=== PATIENT | male | born 1960 | race Caucasian/White ===

== ENCOUNTER 2021-01-22 13:03 | Observation (INO) | payer SELFPAY ==
[~2021-01-22] VITALS: Ht 170.2 cm; Wt 99.8 kg
[2021-01-22 13:28] LABS: BASOPHILS # (AUTO) 0.1 (0.0-0.1); BASOPHILS % 0.5 % (0.0-1.0); EOSINOPHILS # (AUTO) 0.3 (0.0-0.4); EOSINOPHILS % 2.1 % (0.0-6.0); HEMATOCRIT 46.6 % (38.2-49.6); HEMOGLOBIN 14.9 g/dL (14.0-18.0); LYMPHOCYTES # (AUTO) 1.5 (1.0-3.2); MEAN CORPUSCULAR HEMOGLOBIN 33.2 pg (28-32); MEAN CORPUSCULAR VOLUME 103.8 fL (81-99); MONOCYTES # (AUTO) 0.7 (0.2-0.8); MONOCYTES % 5.8 % (4.4-11.3); NEUTROPHILS # (AUTO) 9.6 (2.1-6.9); PLATELET COUNT 175 x10e3/uL (140-360); RED BLOOD COUNT 4.49 x10e6/uL (4.3-5.7); RED CELL DISTRIBUTION WIDTH 13.2 % (11.7-14.4)
[2021-01-22 13:33] LABS: INR 1.26; PROTHROMBIN TIME 16.8 seconds (11.9-14.5)
[2021-01-22 13:41] LABS: ALBUMIN 3.3 g/dL (3.5-5.0); ALBUMIN/GLOBULIN RATIO 0.9 (0.8-2.0); ANION GAP 13.7 mmol/L (8-16); CREATININE, SERUM 1.07 mg/dL (0.72-1.25); POTASSIUM 3.7 mmol/L (3.5-5.1)
[2021-01-22] MEDS ORDERED: ALBUMIN 25% 12.5GM 50ML 0 ML IV ONE (15:34)
[2021-01-22 17:30] VITALS: BP 117/89
[2021-01-22 18:18] VITALS: BP 117/89
[2021-01-22 20:18] VITALS: BP 126/77
[2021-01-22 21:00] VITALS: BP 126/77
[2021-01-22] MEDS ORDERED: ZOFRAN4 MG PO (21:44)
[2021-01-22] MEDS ORDERED: LASIX40 MG PO (21:44)
[2021-01-22] MEDS ORDERED: NAPROSYN500 MG PO (21:44)
[2021-01-22] MEDS ORDERED: COREG25 MG PO (21:44)
[2021-01-22] MEDS ORDERED: ASPIRIN81 MG PO (21:44)
[2021-01-22] MEDS ORDERED: PLAVIX75 MG PO (21:44)
[2021-01-22] MEDS ORDERED: ALDACTONE50 MG PO (21:44)
[2021-01-22] MEDS ORDERED: MAGNESIUM HYDROXIDE 30 ML UDC PO ONE ×2 (22:30→23:30)
[2021-01-22] MEDS ORDERED: ONDANSETRON HCL 4 MG ORAL DISINTEGRATING TAB PO PRN (22:30)
[2021-01-22] MEDS ORDERED: TRAMADOL HCL 50 MG TAB PO PRN (22:30)
[2021-01-22] MEDS: FUROSEMIDE 40 MG TAB PO SCH (22:45)
[2021-01-22] MEDS ORDERED: CEFTRIAXONE 1 GM VIAL IM STA (23:56)
[2021-01-23 00:06] LABS: BODY FLUID APPEARANCE SL.CLOUDY; BODY FLUID COLOR YELLOW; BODY FLUID TYPE PERITONEAL; LYMPHOCYTES,BODY FLUID 66 %; MONO/MACROPHG,BODY FLUID 4 %; NEUTROPHILS,BODY FLUID 30 %; RBC,BODY FLUID 0 cells/uL; WBC,BODY FLUID 343 cells/uL
[2021-01-23 00:29] VITALS: BP 135/86
[2021-01-23] MEDS ORDERED: SODIUM CHLORIDE 0.9% 50ML 50 ML ONE (00:37)
[2021-01-23] MEDS ORDERED: LACTATED RINGER'S 1,000 ML INJ SCH (01:15)
[2021-01-23] MEDS ORDERED: LACTATED RINGER'S 1,000 ML ONE (01:28)
[2021-01-23 05:42] VITALS: BP 127/89
[2021-01-23 08:00] VITALS: BP 129/90
[2021-01-23 08:01] VITALS: BP 129/90
[2021-01-23] MEDS: FUROSEMIDE 40 MG TAB PO SCH (08:40)
[2021-01-23] MEDS ORDERED: SPIRONOLACTONE 25 MG TAB PO SCH (09:00)
[2021-01-23] MEDS ORDERED: CARVEDILOL 12.5 MG TAB PO SCH (09:00)
[2021-01-23] MEDS ORDERED: ASPIRIN 81 MG CHEW TAB PO SCH (09:00)
[2021-01-23] MEDS ORDERED: CLOPIDOGREL BISULFATE 75 MG TAB PO SCH (09:00)
[2021-01-23] MEDS ORDERED: CEFTRIAXONE 1 GM in SODIUM CHLORIDE 0.9% 50ML 50 ML IV SCH (09:00)
[2021-01-23 09:35] LABS: CLARITY,URINE CLEAR (CLEAR); COLOR,URINE YELLOW (YELLOW); KETONES,URINE NEGATIVE (NEGATIVE); LEUKOCYTE ESTERASE ,URINE NEGATIVE (NEGATIVE); NITRITE,URINE NEGATIVE (NEGATIVE); PROTEIN,URINE DIPSTICK NEGATIVE (NEGATIVE); URINE UROBILINOGEN 0.2 mg/dL (0.2 - 1)
[2021-01-23 09:36] LABS: BACTERIA,URINE FEW /HPF; EPITHELIAL CELLS,URINE FEW /LPF; RBC,URINE 0-5 /HPF (0-5); WBC,URINE (MAN) 0-5 /HPF (0-5)
[2021-01-23 12:00] VITALS: BP 114/80
== END 2021-01-23 11:40 | disposition home or self-care (01) ==
LOC: ER 13:09 → ERHOLD 14:46 → MED/SURG3 17:19
PROVIDERS: ADMIT Internal Medicine; ATTEND Internal Medicine
DX: K70.31 Alcoholic cirrhosis of liver with ascites (principal); Z20.822 Contact with and (suspected) exposure to COVID-19; K59.00 Constipation, unspecified; B19.20 Unspecified viral hepatitis C without hepatic coma; I10 Essential (primary) hypertension; R16.0 Hepatomegaly, not elsewhere classified; F10.21 Alcohol dependence, in remission
CPT/HCPCS: 36415; 49083; 71045; 74176; 74470; 80053; 81001; 82040; 83605; 83880; 84157; 84484; 85025; 85610; 87040; 87070; 87205; 87521; 88112; 88305; 88342; 89051; 93005; 94799; 99284; C1729; C9113; G0378 ×2; J0696; J7121; U0002

== ENCOUNTER 2021-09-26 14:01 | Emergency (ER) | payer OTHER ==
[~2021-09-26] VITALS: Ht 170.2 cm; Wt 99.8 kg
[~2021-09-26 14:01] MED LIST: ALDACTONE50 MG PO; ASPIRIN81 MG PO; COREG25 MG PO; LASIX40 MG PO; NAPROSYN500 MG PO; PLAVIX75 MG PO; ZOFRAN4 MG PO
== END 2021-09-26 15:36 | disposition home or self-care (01) ==
LOC: ER 14:14
DX: K70.31 Alcoholic cirrhosis of liver with ascites (principal); I10 Essential (primary) hypertension; Z95.1 Presence of aortocoronary bypass graft
CPT/HCPCS: 99282

== ENCOUNTER 2021-11-16 10:29 | Inpatient (IN) | payer OTHER ==
[~2021-11-16] VITALS: Ht 170.2 cm; Wt 95.7 kg
[2021-11-16] MEDS ORDERED: SODIUM CHLORIDE 0.9% 1000ML 1,000 ML IV STA (10:59)
[2021-11-16] MEDS ORDERED: KETOROLAC TROMETHAMINE 30 MG/ML VIAL IV STA (10:59)
[2021-11-16] MEDS ORDERED: FENTANYL CITRATE/PF 100MCG/2 ML INJ IV PRN (11:00)
[2021-11-16 11:11] LABS: BASOPHILS # (AUTO) 0.1 (0.0-0.1); BASOPHILS % 0.5 % (0.0-1.0); EOSINOPHILS # (AUTO) 0.2 (0.0-0.4); EOSINOPHILS % 1.4 % (0.0-6.0); HEMATOCRIT 48.6 % (38.2-49.6); HEMOGLOBIN 15.9 g/dL (14.0-18.0); LYMPHOCYTES % 11.5 % (18.0-39.1); MEAN CORPUSCULAR HEMOGLOBIN 33.1 pg (28-32); MEAN CORPUSCULAR HGB CONC 32.7 g/dL (31-35); MONOCYTES # (AUTO) 1.1 (0.2-0.8); PLATELET COUNT 212 x10e3/uL (140-360); RED BLOOD COUNT 4.81 x10e6/uL (4.3-5.7); RED CELL DISTRIBUTION WIDTH 12.8 % (11.7-14.4)
[2021-11-16 11:29] LABS: ALBUMIN 3.9 g/dL (3.5-5.0); ALBUMIN/GLOBULIN RATIO 0.8 (0.8-2.0); ANION GAP 19.4 mmol/L (8-16); CALCIUM 10.8 mg/dL (8.4-10.2); CREATININE, SERUM 1.29 mg/dL (0.72-1.25); POTASSIUM 4.4 mmol/L (3.5-5.1)
[2021-11-16] MEDS ORDERED: IOPAMIDOL 370 MG/ML 100 ML INFUS..BTL INJ ONE (11:55)
[2021-11-16] MEDS ORDERED: METRONIDAZOLE 500MG/NS 100ML 100 ML IV STA (13:30)
[2021-11-16] MEDS ORDERED: Morphine 4mg INJECTION 4 MG/ML INJ IV PRN (14:00)
[2021-11-16 14:06] LABS: CLARITY,URINE CLEAR (CLEAR); COLOR,URINE YELLOW (YELLOW); KETONES,URINE NEGATIVE (NEGATIVE); LEUKOCYTE ESTERASE ,URINE NEGATIVE (NEGATIVE); NITRITE,URINE NEGATIVE (NEGATIVE); PROTEIN,URINE DIPSTICK NEGATIVE (NEGATIVE); URINE UROBILINOGEN 0.2 mg/dL (0.2 - 1)
[2021-11-16 14:18] LABS: EPITHELIAL CELLS,URINE RARE /LPF
[2021-11-16] MEDS: SODIUM CHLORIDE 0.9% 1000ML 1,000 ML IV SCH ×2 (14:59→23:35)
[2021-11-16] MEDS: HYDROMORPHONE 1MG/1ML INJ IV PRN ×2 (15:38→19:46)
[2021-11-16 21:45] VITALS: BP 119/75
[2021-11-16 21:59] VITALS: BP 119/75
[2021-11-16 22:00] VITALS: BP 119/75
[2021-11-16] MEDS ORDERED: DEXTROSE 50% SYRINGE 50 ML IV PRN (22:00)
[2021-11-16] MEDS ORDERED: LIPITOR20 MG PO (22:58)
[2021-11-16] MEDS: METRONIDAZOLE 500MG/NS 100ML 100 ML IV SCH (23:36)
[2021-11-17] VITALS (9 sets, daily range): BP systolic 98–161; BP diastolic 69–77
[2021-11-17] MEDS ORDERED: MELATONIN 5 MG TABLET PO PRN (00:15)
[2021-11-17] MEDS: HYDROMORPHONE 1MG/1ML INJ IV PRN ×4 (00:27→20:39)
[2021-11-17] MEDS: METRONIDAZOLE 500MG/NS 100ML 100 ML IV SCH ×3 (05:39→22:00)
[2021-11-17 05:55] LABS: BASOPHILS % 0.3 % (0.0-1.0); EOSINOPHILS # (AUTO) 0.2 (0.0-0.4); EOSINOPHILS % 1.5 % (0.0-6.0); HEMATOCRIT 40.5 % (38.2-49.6); HEMOGLOBIN 13.8 g/dL (14.0-18.0); LYMPHOCYTES # (AUTO) 1.1 (1.0-3.2); LYMPHOCYTES % 8.7 % (18.0-39.1); MEAN CORPUSCULAR HEMOGLOBIN 32.7 pg (28-32); MEAN CORPUSCULAR HGB CONC 34.1 g/dL (31-35); MONOCYTES # (AUTO) 0.8 (0.2-0.8); MONOCYTES % 6.2 % (4.4-11.3); NEUTROPHILS % 82.7 % (38.7-80.0); PLATELET COUNT 145 x10e3/uL (140-360); RED BLOOD COUNT 4.22 x10e6/uL (4.3-5.7); RED CELL DISTRIBUTION WIDTH 12.9 % (11.7-14.4)
[2021-11-17 06:15] LABS: ANION GAP 12.3 mmol/L (8-16); CALCIUM 8.8 mg/dL (8.4-10.2); CREATININE, SERUM 0.83 mg/dL (0.72-1.25); POTASSIUM 4.3 mmol/L (3.5-5.1)
[2021-11-17] MEDS: SODIUM CHLORIDE 0.9% 1000ML 1,000 ML IV SCH ×3 (06:41→20:33)
[2021-11-17 06:44] LABS: CHOL/HDL RATIO 3.3 (3.9-4.7)
[2021-11-17 06:47] LABS: MAGNESIUM 1.7 MG/DL (1.3-2.1); PHOSPHORUS 2.7 MG/DL (2.3-4.7)
[2021-11-17] MEDS: INSULIN REGULAR, HUMAN 100 UNIT/1 ML SQ SCH ×4 (07:30→20:37)
[2021-11-17] MEDS: CARVEDILOL 12.5 MG TAB PO SCH (09:13)
[2021-11-17] MEDS: NICOTINE 7 MG PATCH TOP SCH (09:13)
[2021-11-17] MEDS: FAMOTIDINE 20 MG/2 ML VIAL IV SCH ×2 (09:14→16:28)
[2021-11-17] MEDS ORDERED: BUPIVACAINE 0.5%/EPI 30 ML SDV INJ ONE (12:31)
[2021-11-17] MEDS ORDERED: LIDOCAINE HCL 1% LOCAL INJ 20 ML VIAL ONE (12:37)
[2021-11-17] MEDS ORDERED: LIDOCAINE JELLY 2% 10ML URO-JET ONE (12:37)
[2021-11-17] MEDS ORDERED: HYDROMORPHONE 2MG/ML 2 MG/ML ML ONE (13:00)
[2021-11-17] MEDS ORDERED: HYDROCODONE/APAP 7.5MG-325MG 1 EA TAB PO PRN (13:30)
[2021-11-18] VITALS (8 sets, daily range): BP systolic 113–123; BP diastolic 58–80
[2021-11-18] MEDS ORDERED: Vancomycin IV 1 GM in SODIUM CHLORIDE 0.9% 250ML 250 ML IV ONE (01:15)
[2021-11-18] MEDS ORDERED: ACETAMINOPHEN 325 MG TAB PO PRN (01:15)
[2021-11-18] MEDS: HYDROMORPHONE 1MG/1ML INJ IV PRN ×5 (01:26→23:30)
[2021-11-18] MEDS: SODIUM CHLORIDE 0.9% 1000ML 1,000 ML IV SCH ×3 (03:18→23:39)
[2021-11-18 05:38] LABS: BASOPHILS # (AUTO) 0.1 (0.0-0.1); BASOPHILS % 0.6 % (0.0-1.0); EOSINOPHILS # (AUTO) 0.1 (0.0-0.4); EOSINOPHILS % 1.3 % (0.0-6.0); HEMATOCRIT 39.5 % (38.2-49.6); HEMOGLOBIN 13.2 g/dL (14.0-18.0); LYMPHOCYTES # (AUTO) 1.4 (1.0-3.2); LYMPHOCYTES % 15.1 % (18.0-39.1); MEAN CORPUSCULAR HEMOGLOBIN 33.2 pg (28-32); MEAN CORPUSCULAR HGB CONC 33.4 g/dL (31-35); MEAN CORPUSCULAR VOLUME 99.5 fL (81-99); MONOCYTES % 10.6 % (4.4-11.3); NEUTROPHILS # (AUTO) 6.4 (2.1-6.9); NEUTROPHILS % 71.5 % (38.7-80.0); PLATELET COUNT 142 x10e3/uL (140-360); RED BLOOD COUNT 3.97 x10e6/uL (4.3-5.7)
[2021-11-18 05:43] LABS: ANION GAP 12.3 mmol/L (8-16); CALCIUM 8.8 mg/dL (8.4-10.2); CREATININE, SERUM 0.88 mg/dL (0.72-1.25); POTASSIUM 4.3 mmol/L (3.5-5.1)
[2021-11-18] MEDS: METRONIDAZOLE 500MG/NS 100ML 100 ML IV SCH ×3 (05:58→21:23)
[2021-11-18 06:02] LABS: PHOSPHORUS 3.2 MG/DL (2.3-4.7)
[2021-11-18] MEDS: INSULIN REGULAR, HUMAN 100 UNIT/1 ML SQ SCH ×4 (08:40→19:45)
[2021-11-18] MEDS: FAMOTIDINE 20 MG/2 ML VIAL IV SCH ×2 (08:40→17:00)
[2021-11-18] MEDS: NICOTINE 7 MG PATCH TOP SCH (08:41)
[2021-11-18] MEDS: ONDANSETRON HCL INJ 2MG/ML 2ML 2 MG/ML VIAL IV PRN ×2 (08:45→13:40)
[2021-11-18] MEDS: CARVEDILOL 12.5 MG TAB PO SCH (08:58)
[2021-11-19] VITALS: BP 112/69
[2021-11-19 04:00] VITALS: BP 112/72
[2021-11-19] MEDS: METRONIDAZOLE 500MG/NS 100ML 100 ML IV SCH (06:00)
[2021-11-19] MEDS: SODIUM CHLORIDE 0.9% 1000ML 1,000 ML IV SCH (06:00)
[2021-11-19] MEDS: INSULIN REGULAR, HUMAN 100 UNIT/1 ML SQ SCH (07:30)
[2021-11-19 08:33] VITALS: BP 134/77
[2021-11-19 08:38] VITALS: BP 134/77
[2021-11-19] MEDS: FAMOTIDINE 20 MG/2 ML VIAL IV SCH (09:00)
[2021-11-19] MEDS ORDERED: IBUPROFEN200 MG PO (09:37)
[2021-11-19] MEDS ORDERED: GABAPENTIN100 MG PO (09:37)
[2021-11-19] MEDS ORDERED: NICODERM CQ1 EACH TOP (09:37)
[2021-11-19] MEDS ORDERED: 8HR ARTHRITIS650 MG PO (09:37)
[2021-11-19] MEDS ORDERED: SENNA LAX8.6 MG PO (09:39)
[2021-11-19] MEDS ORDERED: CEPHALEXIN500 MG PO (09:39)
[2021-11-19] MEDS ORDERED: METRONIDAZOLE500 MG PO (09:39)
[2021-11-19] MEDS: CARVEDILOL 12.5 MG TAB PO SCH (11:07)
[2021-11-19] MEDS: NICOTINE 7 MG PATCH TOP SCH (11:25)
[2021-11-19] MEDS ORDERED: CEFTRIAXONE 1 GM VIAL ONE (11:28)
[2021-11-19 12:08] VITALS: BP 114/73
[2021-11-19] MEDS ORDERED: POVIDONE IODINE 0.05% 0.05 % ML PO ONE (13:04)
[2021-11-19] MEDS ORDERED: PROPOFOL IV EMULSION 10 MG/ML 20 ML VIAL IV ONE (13:04)
[2021-11-19] MEDS ORDERED: ONDANSETRON HCL INJ 2MG/ML 2ML 2 MG/ML VIAL IV ONE (13:04)
[2021-11-19] MEDS ORDERED: SEVOFLURANE INHAL SOLN 250 ML PEN BTL INH ONE (13:04)
== END 2021-11-19 13:05 | disposition home or self-care (01) | DRG 348 ==
LOC: ER 10:40 → ERHOLD 14:04 → MED/SURG3 21:39
PROVIDERS: ADMIT Internal Medicine; ATTEND Internal Medicine
PROC: 0DBQ0ZZ Excision of Anus, Open Approach (ICD-10-PCS; principal; 2021-11-17 12:45)
DX: K61.2 Anorectal abscess (principal); R78.81 Bacteremia; K61.1 Rectal abscess; I25.10 Atherosclerotic heart disease of native coronary artery without angina pectoris; Z95.1 Presence of aortocoronary bypass graft; E11.9 Type 2 diabetes mellitus without complications; E83.52 Hypercalcemia; E66.09 Other obesity due to excess calories; Z68.34 Body mass index [BMI] 34.0-34.9, adult; K74.60 Unspecified cirrhosis of liver; B18.2 Chronic viral hepatitis C; F17.210 Nicotine dependence, cigarettes, uncomplicated; G62.9 Polyneuropathy, unspecified; I11.9 Hypertensive heart disease without heart failure; Z20.822 Contact with and (suspected) exposure to COVID-19
CPT/HCPCS: 0223U; 36415; 74177; 80048; 80053; 80061; 81001; 82948; 83036; 83605; 83690; 83735; 83880; 84100; 84484; 85025; 87040; 87071; 87205; 93005; 94799; 96372; 99284; J0696; J1170; J1817; J1885; J2001; J2405; J3010; J3370; J7030; J7050; Q9967